=== PATIENT | male | born 1990 | race African-American/Black ===

== ENCOUNTER 2022-05-10 13:08 | Emergency (ER) | payer OTHER ==
[~2022-05-10] VITALS: Ht 175.3 cm; Wt 62.6 kg
[2022-05-10 13:25] VITALS: BP 110/71
--- NOTE | 2022-05-10 15:24 | NUR ---
Patient discharged to home in stable condition, ambulating. Written and verbal after care instructions given. Patient verbalizes understanding of instruction.
== END 2022-05-10 15:25 | disposition home or self-care (01) ==
LOC: ER 13:15
DX: S06.0XAA Concussion with loss of consciousness status unknown, initial encounter (principal); W50.0XXA Accidental hit or strike by another person, initial encounter; Y93.71 Activity, boxing; Y92.89 Other specified places as the place of occurrence of the external cause; Y99.8 Other external cause status
CPT/HCPCS: 70450-TC